=== PATIENT | male | born 1935 | race Caucasian/White ===

== ENCOUNTER 2017-11-30 14:24 | Observation (INO) | payer MEDICARE ==
[~2017-11-30] VITALS: Ht 175.3 cm; Wt 74.0 kg
[2017-11-30 14:26] VITALS: BP 126/58; PULSE 65; RESP 16; TEMP 97.6; O2SAT 100
[2017-11-30 15:47] LABS: AUTOMATED NEUTROPHIL # 2.8 TH/MM3 (1.8-7.7); BASOPHIL # 0.1 TH/MM3 (0-0.2); BASOPHIL % 1.1 % (0.0-2.0); EOSINOPHIL # 0.3 TH/MM3 (0-0.4); EOSINOPHIL % 5.3 % (0.0-4.0); HEMATOCRIT 31.3 % (39.0-51.0); HEMOGLOBIN 10.7 GM/DL (13.0-17.0); LYMPH % 28.3 % (9.0-44.0); LYMPHOCYTE # 1.4 TH/MM3 (1.0-4.8); MEAN CELL VOLUME 92.3 FL (80.0-100.0); MEAN CORPUSCULAR HEMOGLOBIN 31.6 PG (27.0-34.0); MEAN CORPUSCULAR HGB CONC 34.3 % (32.0-36.0); MEAN PLATELET VOLUME 9.7 FL (7.0-11.0); MONO % 7.5 % (0.0-8.0); MONOCYTE # 0.4 TH/MM3 (0-0.9); NEUT % 57.8 % (16.0-70.0); PLATELET COUNT 175 TH/MM3 (150-450); RED BLOOD COUNT 3.39 MIL/MM3 (4.50-5.90); RED CELL DISTRIBUTION WIDTH 14.1 % (11.6-17.2); WHITE BLOOD COUNT 4.9 TH/MM3 (4.0-11.0)
[2017-11-30 15:58] LABS: PROTHROMBIN TIME - PATIENT 10.4 SEC (9.8-11.6)
--- NOTE | 2017-11-30 16:10 | PD ---
HPI Chief Complaint: GI Complaint Time Seen by Provider: 15:53 Travel History International Travel<30 days: No Contact w/Intl Traveler<30days: No Traveled to known affect area: No History of Present Illness HPI 82-year-old male with a history of CVA on Plavix, and DM Type II presents to emergency department complaining of black and bright red bleeding per rectum. Patient states that he noticed this black stool last night and decided to come in today for evaluation. Patient states that for the last few days he has felt weak and fatigued. Patient states that he is down from [place] for couple months and was evaluated for this previously. Patient states that he had "internal bleeding" required an EGD and blood transfusions completed in February 2017. Apparently patient had polyps (unknown type) which were removed and did not have a subsequent follow-up. Patient denies fevers or chills. Denies chest pain or shortness of breath, abdominal pain, nausea, vomiting or diarrhea. Denies trauma. Patient does take Plavix daily for CVA that occurred 11 years ago. Denies cardiac or pulmonary medical problems. PFSH Past Medical History Hx Anticoagulant Therapy: Yes (plavix) Social History Tobacco Use: No Allergies-Medications (Allergen,Severity, Reaction): Coded Allergies: Penicillins (Verified Allergy, Severe, Rash, 12/02/17) Reported Meds & Prescriptions Reported Meds & Active Scripts Active Reported Niacin (Niacinamide) 500 Mg Tablet 500 Mg PO HS Aspirin Adult Low Strength (Aspirin) 81 Mg Tabdr 81 Mg PO DAILY C 500 (Ascorbic Acid) 500 Mg Tab 500 Mg PO HS Uloric (Febuxostat) 80 Mg Tab 40 Mg PO EVERY OTHER DAY Oxybutynin ER 24 HR (Oxybutynin Chloride) 10 Mg Tab 10 Mg PO HS Losartan (Losartan Potassium) 100 Mg Tab 100 Mg PO HS Atorvastatin (Atorvastatin Calcium) 40 Mg Tab 40 Mg PO HS Gabapentin 600 Mg Tab 600 Mg PO TID Zoloft (Sertraline HCl) 100 Mg Tab 100 Mg PO DAILY Omeprazole 40 Mg Cap 40 Mg PO DAILY Januvia (Sitagliptin Phosphate) 50 Mg Tab 50 Mg PO DAILY Fenofibrate 54 Mg Tab 54 Mg PO DAILY Plavix (Clopidogrel Bisulfate) 75 Mg Tab 75 Mg PO DAILY Tenormin (Atenolol) 25 Mg Tab 25 Mg PO DAILY Amlodipine (Amlodipine Besylate) 5 Mg Tab 5 Mg PO DAILY Review of Systems Except as stated in HPI: all other systems reviewed are Neg Physical Exam Narrative GENERAL: Well-developed well-nourished, slow speech SKIN: Focused skin assessment warm/dry. HEAD: Atraumatic. Normocephalic. EYES: Pupils equal and round. No scleral icterus. No injection or drainage. ENT: No nasal bleeding or discharge. Mucous membranes pink and moist. NECK: Trachea midline. No JVD. No lymphadenopathy CARDIOVASCULAR: Regular rate and rhythm. No murmur appreciated. RESPIRATORY: No accessory muscle use. Clear to auscultation. Breath sounds equal bilaterally. GASTROINTESTINAL: Abdomen soft, non-tender, nondistended. Hepatic and splenic margins not palpable. Rectal exam- good tone with dark red and black stool MUSCULOSKELETAL: No obvious deformities. No clubbing. No cyanosis. No edema. NEUROLOGICAL: Awake and alert. No obvious cranial nerve deficits. Motor grossly within normal limits. PSYCHIATRIC: Appropriate mood and affect; insight and judgment normal. Data Data Last Documented VS Vital Signs Date Time Temp Pulse Resp B/P (MAP) Pulse Ox O2 Delivery O2 Flow Rate FiO2 11/30/17 19:00 60 16 127/66 (86) 100 Room Air 11/30/17 14:26 97.6 Orders Orders Complete Blood Count With Diff (11/30/17 14:38) Comprehensive Metabolic Panel (11/30/17 14:38) Lipase (11/30/17 14:38) Prothrombin Time / Inr (Pt) (11/30/17 14:38) Act Partial Throm Time (Ptt) (11/30/17 14:38) Urinalysis - C+S If Indicated (11/30/17 14:38) Type And Screen (11/30/17 14:38) Electrocardiogram (11/30/17 ) Sodium Chlorid 0.9% 500 Ml Inj (Ns 500 M (11/30/17 16:30) Ct Brain W/O Iv Contrast(Rout) (11/30/17 ) Chest, Single Ap (11/30/17 ) Pantoprazole Inj (Protonix Inj) (11/30/17 17:45) Admit Order (Ed Use Only) (11/30/17 19:46) Labs Laboratory Tests Test 11/30/17 14:45 11/30/17 18:33 White Blood Count 4.9 TH/MM3 Red Blood Count 3.39 MIL/MM3 Hemoglobin 10.7 GM/DL Hematocrit 31.3 % Mean Corpuscular Volume 92.3 FL Mean Corpuscular Hemoglobin 31.6 PG Mean Corpuscular Hemoglobin Concent 34.3 % Red Cell Distribution Width 14.1 % Platelet Count 175 TH/MM3 Mean Platelet Volume 9.7 FL Neutrophils (%) (Auto) 57.8 % Lymphocytes (%) (Auto) 28.3 % Monocytes (%) (Auto) 7.5 % Eosinophils (%) (Auto) 5.3 % Basophils (%) (Auto) 1.1 % Neutrophils # (Auto) 2.8 TH/MM3 Lymphocytes # (Auto) 1.4 TH/MM3 Monocytes # (Auto) 0.4 TH/MM3 Eosinophils # (Auto) 0.3 TH/MM3 Basophils # (Auto) 0.1 TH/MM3 CBC Comment DIFF FINAL Differential Comment Prothrombin Time 10.4 SEC Prothromb Time International Ratio 1.0 RATIO Activated Partial Thromboplast Time 21.7 SEC Blood Urea Nitrogen 30 MG/DL Creatinine 1.66 MG/DL Random Glucose 111 MG/DL Total Protein 7.5 GM/DL Albumin 4.3 GM/DL Calcium Level 9.5 MG/DL Alkaline Phosphatase 117 U/L Aspartate Amino Transf (AST/SGOT) 77 U/L Alanine Aminotransferase (ALT/SGPT) 54 U/L Total Bilirubin 0.4 MG/DL Sodium Level 139 MEQ/L Potassium Level 4.2 MEQ/L Chloride Level 106 MEQ/L Carbon Dioxide Level 26.7 MEQ/L Anion Gap 6 MEQ/L Estimat Glomerular Filtration Rate 40 ML/MIN Lipase 314 U/L Urine Color LIGHT-YELLOW Urine Turbidity CLEAR Urine pH 5.5 Urine Specific [place] 1.010 Urine Protein NEG mg/dL Urine Glucose (UA) NEG mg/dL Urine Ketones NEG mg/dL Urine Occult Blood NEG Urine Nitrite NEG Urine Bilirubin NEG Urine Urobilinogen LESS THAN 2.0 MG/DL Urine Leukocyte Esterase NEG Urine WBC LESS THAN 1 /hpf Urine Bacteria RARE /hpf Microscopic Urinalysis Comment CULT NOT INDICATED MDM Medical Decision Making Medical Screen Exam Complete: Yes Emergency Medical Condition: Yes Differential Diagnosis symptomatic anemia, GI bleed, melena, hematochezia Narrative Course 82-year-old male with a history of CVA on Plavix, and DM Type II presents to emergency department complaining of black and bright red bleeding per rectum. Patient states that he noticed this black stool last night and decided to come in today for evaluation. Patient states that for the last few days he has felt weak and fatigued. Patient states that he is down from [place] for couple months and was evaluated for this previously. Patient states that he had "internal bleeding" required an EGD and blood transfusions completed in February 2017. Apparently patient had polyps (unknown type) which were removed and did not have a subsequent follow-up. Patient denies fevers or chills. Denies chest pain or shortness of breath, abdominal pain, nausea, vomiting or diarrhea. Denies trauma. Patient does take Plavix daily for CVA that occurred 11 years ago. Denies cardiac or pulmonary medical problems. Last oral intake 12 :30. Vital signs stable. Physical exam findings without focal neuro deficits. Rectal exam demonstrates dark stool with scant bright red blood. Good rectal tone. EKG demonstrates sinus rhythm without ST depression or elevation. Head CT and CXR ordered to evaluate for weakness. No acute process noted. Protonix administered. Patient brought in from February 2017. These labs demonstrated creatinine 1.46, BUN 22. RBC 3.91, hemoglobin 10.2, hematocrit 33.2. states that this was his last blood work and does not have any other numbers to compare. H&H 10.3/31.3 currently. Although not too impressive and no obvious change from 2017 labs, pt is symptomatic and on Plavix. Pt will be admitted to Obs. Recommend serial CBCs Q6hrs. Consider GI Consult. [facility] Point of Care Internal Pos. & Neg. Controls: Passed Fecal Specimen Occult Blood: Positive Diagnosis Primary Impression: Melena Additional Impression: Symptomatic anemia Admitting Information Admitting Physician Requests: Observation Condition: Stable Catrachita Perdomo Nov 30, 2017 16:10
[2017-11-30 16:16] LABS: ALBUMIN 4.3 GM/DL (3.4-5.0); AST (GOT) 77 U/L (15-37); BICARBONATE 26.7 MEQ/L (21.0-32.0); BLOOD UREA NITROGEN 30 MG/DL (7-18); CALCIUM 9.5 MG/DL (8.5-10.1); CHLORIDE 106 MEQ/L (98-107); CREATININE 1.66 MG/DL (0.60-1.30); GLOMERULAR FILTRATION RATE 40 ML/MIN (>89); GLUCOSE,RANDOM 111 MG/DL (74-106); LIPASE 314 U/L (73-393); SODIUM (NA) 139 MEQ/L (136-145)
[2017-11-30 16:20] LABS: ALKALINE PHOSPHATASE 117 U/L (45-117); ALT (GPT) 54 U/L (12-78); TOTAL BILIRUBIN ADULT 0.4 MG/DL (0.2-1.0); TOTAL PROTEIN 7.5 GM/DL (6.4-8.2)
[2017-11-30] MEDS ORDERED: SODIUM CHLORID 0.9% 500 ML INJ 500 ML IV ONE (16:30)
--- NOTE | 2017-11-30 17:08 | RADRPT ---
EXAM DATE/TIME: 11/30/2017 16:46 [facility] COMPARISON: No previous studies available for comparison. INDICATIONS : Syncope, weakness. MEDICAL HISTORY : None. SURGICAL HISTORY : None. ENCOUNTER: Initial ACUITY: 1 day PAIN SCORE: 0/10 LOCATION: Bilateral chest FINDINGS: A single view of the chest demonstrates the lungs to be symmetrically aerated without evidence of mas s, infiltrate or effusion. The cardiomediastinal contours are unremarkable. Osseous structures are intact. CONCLUSION: Normal examination for a patient of this age. Uriel Cote MD on November 30, 2017 at 17:05 Board Certified Radiologist. This report was verified electronically.
[2017-11-30] MEDS ORDERED: LOSA100T PO (17:29)
[2017-11-30] MEDS ORDERED: ATOR40TA16 PO (17:29)
[2017-11-30] MEDS ORDERED: ASPI81TA16 PO (17:29)
[2017-11-30] MEDS ORDERED: ZOLO100T PO (17:29)
[2017-11-30] MEDS ORDERED: OXYB10TA PO (17:29)
[2017-11-30] MEDS ORDERED: GABA600T PO (17:29)
[2017-11-30] MEDS ORDERED: ULOR80TA2 PO (17:29)
[2017-11-30] MEDS ORDERED: SITA50 PO (17:29)
[2017-11-30] MEDS ORDERED: FENO54TA PO (17:29)
[2017-11-30] MEDS ORDERED: OMEP40CA2 PO (17:29)
[2017-11-30] MEDS ORDERED: ATEN1TAB73 PO (17:29)
[2017-11-30] MEDS ORDERED: NIAC500T67 PO (17:29)
[2017-11-30] MEDS ORDERED: AMLO5TAB2 PO (17:29)
[2017-11-30] MEDS ORDERED: C 50TAB PO (17:29)
[2017-11-30] MEDS ORDERED: PLAV75TA29 PO (17:29)
[2017-11-30] MEDS ORDERED: PANTOPRAZOLE SODIUM 40 MG VIAL IV PUSH ONE (17:45)
--- NOTE | 2017-11-30 17:50 | RADRPT ---
EXAM DATE/TIME: 11/30/2017 17:19 [facility] COMPARISON: No previous studies available for comparison. INDICATIONS : General weakness RADIATION DOSE: 56.35 CTDIvol (mGy) MEDICAL HISTORY : Hypertension. Carcinoma, testicular. SURGICAL HISTORY : Orthopedic ENCOUNTER: Initial ACUITY: 1 day PAIN SCALE: 0/10 LOCATION: cranial TECHNIQUE: Multiple contiguous axial images were obtained of the head. Using automated exposure control and adj ustment of the mA and/or kV according to patient size, radiation dose was kept as low as reasonably a chievable to obtain optimal diagnostic quality images. DICOM format image data is available electro nically for review and comparison. FINDINGS: CEREBRUM: The ventricles are prominent as are sulci indicating mild atrophy. No evidence of midline shift, mas s lesion, hemorrhage or acute infarction. No extra-axial fluid collections are seen. POSTERIOR FOSSA: The cerebellum and brainstem are intact. The 4th ventricle is midline. The cerebellopontine angle i s unremarkable. EXTRACRANIAL: The visualized portion of the orbits is intact. Calcifications bilateral vertebral arteries at the fo ramen and bilateral carotid arteries in the siphons SKULL: The calvaria is intact. No evidence of skull fracture. CONCLUSION: No acute intracranial process. Mild atrophy. Vascular calcifications as noted. Uriel Cote MD on November 30, 2017 at 17:46 Board Certified Radiologist. This report was verified electronically.
[2017-11-30 19:00] VITALS: BP 127/66; PULSE 60; RESP 16; O2SAT 100
[2017-11-30 19:03] LABS: BACTERIA, URINE RARE /hpf; BILIRUBIN, URINE NEG (NEG); BLOOD, URINE NEG (NEG); GLUCOSE,URINE NEG (NEG); KETONE, URINE NEG (NEG); NITRITE,URINE NEG (NEG); PH, URINE 5.5 (5.0-8.5); URINE COLOR LIGHT-YELLOW (YELLW/STRAW); URINE LEUKOCYTE ESTERASE NEG (NEG)
[2017-11-30] MEDS ORDERED: NALOXONE HCL 0.4 MG/ML AMP IV PUSH PRN (20:15)
[2017-11-30] MEDS ORDERED: SODIUM CHLORIDE 0.9% FLUSH 10 ML FLUSH IV FLUSH PRN (20:15)
[2017-11-30] MEDS: SODIUM CHLORIDE 0.9% FLUSH 10 ML FLUSH IV FLUSH SCH (20:53)
[2017-11-30 21:05] LABS: HEMATOCRIT 28.9 % (39.0-51.0); HEMOGLOBIN 9.5 GM/DL (13.0-17.0)
[2017-11-30 23:00] VITALS: BP 118/60; PULSE 62; RESP 16; O2SAT 100
[2017-12-01] VITALS (8 sets, daily range): BP systolic 93–130; BP diastolic 48–66; PULSE 60–75; RESP 16–20; TEMP 97.7–98.4; O2SAT 96–100
--- NOTE | 2017-12-01 02:56 | HHI.HP ---
HPI Service [facility] Primary Care Physician Non-Staff Admission Diagnosis Symptomatic anemia, GI Bleed on plavix Diagnoses: Travel History International Travel<30 Days: No Contact w/Intl Traveler <30 Da: No Traveled to Known Affected Are: No History of Present Illness History from patient, ER physician communication, and review of medical records. Patient reported that about a couple of nights ago, he has had black color stool. He reports he remember having similar symptoms about 6 months ago at which time he had a polyp removed. He stated at that time his hemoglobin was 5.0. He was severely symptomatic at that point and had to be rushed to go to the hospital. His baseline hemoglobin is 11-12. This time, he did not want to wait that long and therefore he came to the hospital. He reports that he had an endoscopy and the polyp was was removed through the endoscopy. He is not sure exactly what part of his upper GI that the polyp was located. Patient denies any prior history of CAD. He reports his blood cholesterol was only once or twice and happened about a few nights ago. It has spontaneously resolved. He however has not eaten much at home since the then. He denies any chest pain/shortness of breath/dizziness/syncopal episodes. He does however report of generalized weakness He came here from [place] for vacation. Review of Systems Except as stated in HPI: all other systems reviewed are Neg Past Family Social History Past Medical History htn dm cva- 12 yrs ago - was parayzed on right side cancer testicular 1987- right side- was treated with chemo full blown dose, for 5 days Past Surgical History exploratory surgery with removal of right ribs removed, lymph nodes removed for right testicular cancer right orchiectomy back surgery x 2 Allergies: Coded Allergies: No Known Allergies (Verified Allergy, Unknown, 11/30/17) Family History none that he knows of Social History no smoking/ etoh abuse/ drug abuse Physical Exam Vital Signs Vital Signs Date Time Temp Pulse Resp B/P (MAP) Pulse Ox O2 Delivery O2 Flow Rate FiO2 11/30/17 14:26 97.6 65 16 126/58 (80) 100 Physical Exam GENERAL: This is a well-nourished, well-developed patient, in no apparent distress. SKIN: No rashes, ecchymoses or lesions. Cool and dry. HEAD: Atraumatic. Normocephalic. No temporal or scalp tenderness. EYES: No scleral icterus. No injection or drainage. ENT: Nose without bleeding, purulent drainage or septal hematoma. Airway patent. NECK: Trachea midline. No JVD . Supple, nontender, no meningeal signs. CARDIOVASCULAR: Regular rate and rhythm without murmurs, gallops, or rubs. RESPIRATORY: Clear to auscultation. Breath sounds equal bilaterally. No wheezes , rales, or rhonchi. GASTROINTESTINAL: Abdomen soft, non-tender, nondistended. No guarding. MUSCULOSKELETAL: Extremities without clubbing, cyanosis, or edema. . No calf tenderness. NEUROLOGICAL: Awake and alert.Motor and sensory grossly within normal limits. Normal speech. Laboratory Laboratory Tests Test 11/30/17 14:45 11/30/17 18:33 11/30/17 20:40 White Blood Count 4.9 Red Blood Count 3.39 Hemoglobin 10.7 9.5 Hematocrit 31.3 28.9 Mean Corpuscular Volume 92.3 Mean Corpuscular Hemoglobin 31.6 Mean Corpuscular Hemoglobin Concent 34.3 Red Cell Distribution Width 14.1 Platelet Count 175 Mean Platelet Volume 9.7 Neutrophils (%) (Auto) 57.8 Lymphocytes (%) (Auto) 28.3 Monocytes (%) (Auto) 7.5 Eosinophils (%) (Auto) 5.3 Basophils (%) (Auto) 1.1 Neutrophils # (Auto) 2.8 Lymphocytes # (Auto) 1.4 Monocytes # (Auto) 0.4 Eosinophils # (Auto) 0.3 Basophils # (Auto) 0.1 CBC Comment DIFF FINAL Differential Comment Prothrombin Time 10.4 Prothromb Time International Ratio 1.0 Activated Partial Thromboplast Time 21.7 Blood Urea Nitrogen 30 Creatinine 1.66 Random Glucose 111 Total Protein 7.5 Albumin 4.3 Calcium Level 9.5 Alkaline Phosphatase 117 Aspartate Amino Transf (AST/SGOT) 77 Alanine Aminotransferase (ALT/SGPT) 54 Total Bilirubin 0.4 Sodium Level 139 Potassium Level 4.2 Chloride Level 106 Carbon Dioxide Level 26.7 Anion Gap 6 Estimat Glomerular Filtration Rate 40 Lipase 314 Urine Color LIGHT-YELLOW Urine Turbidity CLEAR Urine pH 5.5 Urine Specific [place] 1.010 Urine Protein NEG Urine Glucose (UA) NEG Urine Ketones NEG Urine Occult Blood NEG Urine Nitrite NEG Urine Bilirubin NEG Urine Urobilinogen LESS THAN 2.0 Urine Leukocyte Esterase NEG Urine WBC LESS THAN 1 Urine Bacteria RARE Microscopic Urinalysis Comment CULT NOT INDICATED Result Diagram: 11/30/17203911/30/17 1445 Imaging Last [address] 11/30/17 0000 Signed Impressions: Service Date/Time: Thursday, November 30, 2017 17:19 - CONCLUSION: No acute intracranial process. Mild atrophy. Vascular calcifications as noted. Uriel Cote MD Chest X-Ray 11/30/17 0000 Signed Impressions: Service Date/Time: Thursday, November 30, 2017 16:46 - CONCLUSION: Normal examination for a patient of this age. MD Marylin Gonzalez VTE Risk Assessment Geoffreyrinlorena VTE Risk Assessment: Mod/High Risk (score >= 2) Caprini Risk Assessment Model Point Value = 1 Point Value = 2 Point Value = 3 Point Value = 5 Age 41-60 Minor surgery BMI > 25 kg/m2 Swollen legs Varicose veins or History of unexplained or recurrent spontaneous Oral contraceptives or hormone replacement Sepsis (< 1 month) Serious lung disease, including pneumonia (< 1 month) Abnormal pulmonary function Acute myocardial infarction Congestive heart failure (< 1 month) History of inflammatory bowel disease Medical patient at bed rest Age 61-74 Arthroscopic surgery Major open surgery (> 45 min) Laparoscopic surgery (> 45 min) Malignancy Confined to bed (> 72 hours) Immobilizing plaster cast Central venous access Age >= 75 History of VTE Family history of VTE Factor V Leiden Prothrombin [id number] Lupus anticoagulant Anticardiolipin antibodies Elevated serum homocysteine Heparin-induced thrombocytopenia Other congenital or acquired thrombophilia Stroke (< 1 month) Elective arthroplasty Hip, pelvis, or leg fracture Acute spinal cord injury (< 1 month) Prophylaxis Regimen Total Risk Factor Score Risk Level Prophylaxis Regimen 0-1 Low Early ambulation 2 Moderate Order ONE of the following: *Sequential Compression Device (SCD) *Heparin 5000 units SQ BID 3-4 Higher Order ONE of the following medications: *Heparin 5000 units SQ TID *Enoxaparin/Lovenox 40 mg SQ daily (WT < 150 kg, CrCl > 30 mL/min) *Enoxaparin/Lovenox 30 mg SQ daily (WT < 150 kg, CrCl > 10-29 mL/min) *Enoxaparin/Lovenox 30 mg SQ BID (WT < 150 kg, CrCl > 30 mL/min) AND/OR *Sequential Compression Device (SCD) 5 or more Highest Order ONE of the following medications: *Heparin 5000 units SQ TID (Preferred with Epidurals) *Enoxaparin/Lovenox 40 mg SQ daily (WT < 150 kg, CrCl > 30 mL/min) *Enoxaparin/Lovenox 30 mg SQ daily (WT < 150 kg, CrCl > 10-29 mL/min) *Enoxaparin/Lovenox 30 mg SQ BID (WT < 150 kg, CrCl > 30 mL/min) AND *Sequential Compression Device (SCD) Assessment and Plan Assessment and Plan Impression: Upper GI bleed History of prior upper GI bleed with what sounds like cauterization and polypectomy Acute renal failure secondary to dehydration On chronic Plavix therapy htn dm cva- 12 yrs ago - was parayzed on right side cancer testicular 1986- right side- was treated with chemo full blown dose, for 5 days Plan: Serial hemoglobin and hematocrit. PPI IV NPO fingersticks monitoring D5 NS at 84cc/hr Type and screen. 2 units of PRBC in the blood bank. If hemoglobin continues to drop and if less than 8 or if patient is symptomatic , we'll transfuse. Otherwise await GI input. Hold aspirin. Hold Plavix. Otherwise sitting most of his meds DVT prophylaxis with SCD. Discussed Condition With charge Joana Burnette MD Dec 01, 2017 02:56
[2017-12-01] MEDS ORDERED: diphenhydrAMINE HCL 50 MG/ML VIAL IV PUSH ONE (03:00)
[2017-12-01] MEDS ORDERED: GLUCAGON 1 MG/ML VIAL OTHER PRN (03:15)
[2017-12-01] MEDS ORDERED: DEXTROSE 50% IN WATER 50 ML VIAL(D50) IV PUSH PRN (03:15)
[2017-12-01] MEDS: DEXT 5%-NACL 0.9% 1000 ML INJ 1,000 ML IV SCH ×2 (03:30→18:18)
[2017-12-01] MEDS: NIACIN 500 MG EXTENDED RELEASE TAB PO SCH ×2 (03:56→21:23)
[2017-12-01] MEDS: PANTOPRAZOLE SODIUM 40 MG VIAL IV PUSH SCH ×2 (06:17→18:19)
[2017-12-01 06:41] LABS: AUTOMATED NEUTROPHIL # 1.7 TH/MM3 (1.8-7.7); EOSINOPHIL # 0.2 TH/MM3 (0-0.4); EOSINOPHIL % 5.4 % (0.0-4.0); HEMATOCRIT 25.4 % (39.0-51.0); HEMOGLOBIN 8.7 GM/DL (13.0-17.0); LYMPH % 31.1 % (9.0-44.0); MEAN CELL VOLUME 92.1 FL (80.0-100.0); MEAN CORPUSCULAR HEMOGLOBIN 31.4 PG (27.0-34.0); MEAN CORPUSCULAR HGB CONC 34.1 % (32.0-36.0); MEAN PLATELET VOLUME 9.4 FL (7.0-11.0); MONO % 7.7 % (0.0-8.0); MONOCYTE # 0.2 TH/MM3 (0-0.9); NEUT % 54.8 % (16.0-70.0); PLATELET COUNT 124 TH/MM3 (150-450); RED BLOOD COUNT 2.76 MIL/MM3 (4.50-5.90); WHITE BLOOD COUNT 3.1 TH/MM3 (4.0-11.0)
[2017-12-01 07:02] LABS: BICARBONATE 23.6 MEQ/L (21.0-32.0); CALCIUM 8.5 MG/DL (8.5-10.1); CREATININE 1.36 MG/DL (0.60-1.30)
[2017-12-01] MEDS: SODIUM CHLORIDE 0.9% FLUSH 10 ML FLUSH IV FLUSH SCH ×2 (08:07→21:00)
[2017-12-01] MEDS: OXYBUTYNIN CHLORIDE 5 MG TAB PO SCH ×2 (08:07→21:23)
[2017-12-01] MEDS: ATENOLOL 25 MG TAB PO SCH (08:07)
[2017-12-01] MEDS: GABAPENTIN 300 MG CAP PO SCH ×3 (08:07→18:19)
[2017-12-01] MEDS: amLODIPine BESYLATE 5 MG TAB PO SCH (08:07)
[2017-12-01] MEDS: SERTRALINE HCL 100 MG TAB PO SCH (08:07)
[2017-12-01] MEDS ORDERED: FEBUXOSTAT 40 MG PO SCH (09:00)
[2017-12-01] MEDS ORDERED: FENOFIBRATE 48 MG TAB PO SCH (09:00)
--- NOTE | 2017-12-01 09:51 | HHI.PR ---
Subjective Remarks Follow-up on patient with upper GI bleed. Patient seen and examined. Patient states he feels well. He denies any complaints at present. He denies any dizziness, lightheadedness, chest pain or shortness of breath. Denies any increased fatigue. He has not had a bowel movement since admission. He denies any hematuria or dysuria. Patient states that he had a colonoscopy or 4 years ago and was told he would probably not need another one in his lifetime. Also underwent an endoscopy in February with polypectomy due to upper GI bleed resulting in symptomatic anemia requiring transfusion. Patient denies any nausea, vomiting or abdominal pain. He is hungry and wants to eat. He takes Plavix and aspirin daily following a stroke he had 12 years ago, his last dose was on Thursday. Patient also reports daily alcohol consumption of one gin and tonic around 5:00 at night. He denies taking NSAIDs on a regular basis. Objective Vitals Vital Signs Date Time Temp Pulse Resp B/P (MAP) Pulse Ox O2 Delivery O2 Flow Rate FiO2 12/01/17 09:36 75 20 130/66 (87) 97 12/01/17 09:36 75 20 130/66 (87) 97 Room Air 12/01/17 07:00 16 12/01/17 07:00 97.8 60 16 120/59 (79) 99 Room Air 12/01/17 03:00 63 16 114/59 (77) 100 Room Air 11/30/17 23:00 62 16 118/60 (79) 100 Room Air 11/30/17 19:00 60 16 127/66 (86) 100 Room Air 11/30/17 14:26 97.6 65 16 126/58 (80) 100 I/O 11/30/17 11/30/17 11/30/17 12/01/17 12/01/17 12/01/17 07:00 15:00 23:00 07:00 15:00 23:00 Intake Total 500 ml Output Total 600 ml Balance 500 ml -600 ml Intake IV Total 500 ml Output Urine Total 600 ml # Voids 1 # Bowel Movements 0 Result Diagram: 12/01/17 0547 12/01/17 0547 Imaging Last Impressions Head CT 11/30/17 0000 Signed Impressions: Service Date/Time: Thursday, November 30, 2017 17:19 - CONCLUSION: No acute intracranial process. Mild atrophy. Vascular calcifications as noted. Uriel Cote MD Chest X-Ray 11/30/17 0000 Signed Impressions: Service Date/Time: Thursday, November 30, 2017 16:46 - CONCLUSION: Normal examination for a patient of this age. rUiel Cote MD Objective Remarks GENERAL: This is a well-nourished, well-developed elderly male patient , in no apparent distress. Awake and alert. SKIN: Cool and dry. HEAD: Atraumatic. Normocephalic. EYES: EOMI. No scleral icterus. No injection or drainage. ENT: Nose without bleeding, purulent drainage or septal hematoma. Airway patent. NECK: Trachea midline. CARDIOVASCULAR: Regular rate and rhythm without murmurs, gallops, or rubs. RESPIRATORY: Clear to auscultation. Breath sounds equal bilaterally. No wheezes , rales, or rhonchi. GASTROINTESTINAL: Abdomen soft, non-tender, nondistended. No guarding. MUSCULOSKELETAL: Extremities without clubbing, cyanosis, or edema. No calf tenderness. NEUROLOGICAL: Awake and alert. Motor and sensory grossly within normal limits. No focal neurologic findings appreciated. Normal speech. Medications and IVs Current Medications Medications (Trade) Dose Ordered Sig/Brody Route Start Time Stop Time Status Last Admin (NS Flush) 2 ml UNSCH PRN IV FLUSH 11/30/17 20:15 (NS Flush) 2 ml BID IV FLUSH 11/30/17 21:00 11/30/17 20:53 (Narcan Inj) 0.4 mg UNSCH PRN IV PUSH 11/30/17 20:15 (Protonix Inj) 40 mg Q12H IV PUSH 12/01/17 06:00 12/01/17 06:17 (Norvasc) 5 mg DAILY PO 12/01/17 09:00 12/01/17 08:07 (Tenormin) 25 mg DAILY PO 12/01/17 09:00 12/01/17 08:07 (Lipitor) 40 mg HS PO 12/01/17 21:00 (Neurontin) 600 mg TID PO 12/01/17 09:00 12/01/17 08:07 (Cozaar) 100 mg HS PO 12/01/17 21:00 (Zoloft) 100 mg DAILY PO 12/01/17 09:00 12/01/17 08:07 Patient Own Medication PT OWN MED: NON-FORMULARY D... EVERY OTHER DAY PO 12/01/17 09:00 Future Hold (Tricor) 48 mg DAILY PO 12/01/17 09:00 12/01/17 08:06 (Slo-Niacin) 500 mg HS PO 12/01/17 03:30 12/01/17 03:56 (Ditropan) 5 mg BID PO 12/01/17 09:00 12/01/17 08:07 Dextrose/Sodium Chloride 1,000 ml @ 84 mls/hr [id number] IV 12/01/17 03:15 12/01/17 03:30 (D50w (Vial) Inj) 50 ml UNSCH PRN IV PUSH 12/01/17 03:15 (Glucagon Inj) 1 mg UNSCH PRN OTHER 12/01/17 03:15 (NovoLOG SUPPLEMENTAL SCALE) 1 ACHS SLIDING SCALE SQ 12/01/17 12:00 UNV A/P Assessment and Plan UGI bleed - History of prior upper GI bleed causing symptomatic anemia requiring transfusion status post EGD and polypectomy in February of last year - GI following, appreciate assistance. Plan for EGD later today. - IV PPI - keep patient NPO - Continue to hold Plavix and aspirin for now Anemia - Suspect secondary to above - Iron studies pending - Patient is asymptomatic at present - Hemoglobin dropped from 10.7-8.7 since admission. Repeat H&H at noon. Continue to monitor H&H closely. - Plan to transfuse if hemoglobin drops below 8 or if patient is symptomatic. QUENTIN on suspected CKD - Creatinine 1.66/GFR 40 at admission, no comparison labs available. UA unremarkable. - Improving with IV hydration - Avoid nephrotoxic agents - Continue to monitor kidney function Hypertension - Patient resumed on home medications - Blood pressure controlled - Continue to monitor BP and adjust treatment accordingly Hyperlipidemia Transaminitis - Hold statin and fenofibrate for now - Patient will need a follow-up with PCP in regards to resuming statin treatment Diabetic - Accu-Cheks, insulin sliding scale - Patient takes Januvia at home which is held secondary to nothing by mouth status History of CVA - Patient on chronic Plavix and aspirin therapy, held for now secondary to active GI bleed. DVT prophylaxis - bilateral CUCO/SCDs - Chemoprophylaxis contraindicated secondary to active GI bleed. Discharge Planning Pending stabilization of hemoglobin and GI clearance. Shruthi Sahu Dec 01, 2017 09:50
--- NOTE | 2017-12-01 10:04 | PD.CONS ---
HPI History of Present Illness This is a 82 year old, admitted yesterday for a chief complaint of melena and symptomatic anemia. He had a history of a similar episode 6 months ago where he had weakness, underwent an EGD, found to have a polyp that was removed. He's a daily alcohol user (1-2 glasses of Gen and Tonic). Hemoglobin level today was 8.7 mmHg. Denies any nausea, vomiting, constipation, dizziness, dysphagia, abdominal pain, palpitations. The patient's currently NPO, currently receiving IV PPIs, no diarrhea, stools today, no rectal bleeding noted. Labs include: ALT: 44, AST: 77, Bilirubin:0.4, ALP: 117. 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- was treated with chemo full blown dose, for 5 days Polyps Past Surgical History exploratory surgery with removal of right ribs removed, lymph nodes removed for right testicular cancer right orchiectomy back surgery x 2 (Alba Montoya) Coded Allergies: No Known Allergies (Verified Allergy, Unknown, 11/30/17) Medications Administered Medications Medications (Trade) Dose Ordered Sig/Brody Route PRN Reason Start Time Stop Time Status Last Admin Dose Admin Sodium Chloride (NS Flush) 2 ml BID IV FLUSH 11/30/17 21:00 11/30/17 20:53 Pantoprazole Sodium (Protonix Inj) 40 mg Q12H IV PUSH 12/01/17 06:00 12/01/17 06:17 Amlodipine Besylate (Norvasc) 5 mg DAILY PO 12/01/17 09:00 12/01/17 08:07 Atenolol (Tenormin) 25 mg DAILY PO 12/01/17 09:00 12/01/17 08:07 Gabapentin (Neurontin) 600 mg TID PO 12/01/17 09:00 12/01/17 08:07 Sertraline HCl (Zoloft) 100 mg DAILY PO 12/01/17 09:00 12/01/17 08:07 Fenofibrate (Tricor) 48 mg DAILY PO 12/01/17 09:00 12/01/17 08:06 Niacin (Slo-Niacin) 500 mg HS PO 12/01/17 03:30 12/01/17 03:56 Oxybutynin Chloride (Ditropan) 5 mg BID PO 12/01/17 09:00 12/01/17 08:07 Dextrose/Sodium Chloride 1,000 ml @ 84 mls/hr [id number] IV 12/01/17 03:15 12/01/17 03:30 Family History none that he knows of Social History no smoking/ drug abuse Daily etoh Gin (Alba Montoya) Review of Systems Constitutional: COMPLAINS OF: Fatigue (Alba Montoya) GI Exam Vitals I&O Vital Signs Date Time Temp Pulse Resp B/P (MAP) Pulse Ox O2 Delivery O2 Flow Rate FiO2 12/01/17 09:36 75 20 130/66 (87) 97 12/01/17 09:36 75 20 130/66 (87) 97 Room Air 12/01/17 07:00 16 12/01/17 07:00 97.8 60 16 120/59 (79) 99 Room Air 12/01/17 03:00 63 16 114/59 (77) 100 Room Air 11/30/17 23:00 62 16 118/60 (79) 100 Room Air 11/30/17 19:00 60 16 127/66 (86) 100 Room Air 11/30/17 14:26 97.6 65 16 126/58 (80) 100 I/O 11/30/17 11/30/17 11/30/17 12/01/17 12/01/17 12/01/17 07:00 15:00 23:00 07:00 15:00 23:00 Intake Total 500 ml Output Total 600 ml Balance 500 ml -600 ml Intake IV Total 500 ml Output Urine Total 600 ml # Voids 1 # Bowel Movements 0 Imaging Last Impressions Head CT 11/30/17 0000 Signed Impressions: Service Date/Time: Thursday, November 30, 2017 17:19 - CONCLUSION: No acute intracranial process. Mild atrophy. Vascular calcifications as noted. Uriel Cote MD Chest X-Ray 11/30/17 0000 Signed Impressions: Service Date/Time: Thursday, November 30, 2017 16:46 - CONCLUSION: Normal examination for a patient of this age. Uriel Cote MD Laboratory Test 11/30/17 14:45 11/30/17 18:33 11/30/17 20:40 12/01/17 05:47 White Blood Count 4.9 TH/MM3 3.1 TH/MM3 Red Blood Count 3.39 MIL/MM3 2.76 MIL/MM3 Hemoglobin 10.7 GM/DL 9.5 GM/DL 8.7 GM/DL Hematocrit 31.3 % 28.9 % 25.4 % Mean Corpuscular Volume 92.3 FL 92.1 FL Mean Corpuscular Hemoglobin 31.6 PG 31.4 PG Mean Corpuscular Hemoglobin Concent 34.3 % 34.1 % Red Cell Distribution Width 14.1 % 14.0 % Platelet Count 175 TH/MM3 124 TH/MM3 Mean Platelet Volume 9.7 FL 9.4 FL Neutrophils (%) (Auto) 57.8 % 54.8 % Lymphocytes (%) (Auto) 28.3 % 31.1 % Monocytes (%) (Auto) 7.5 % 7.7 % Eosinophils (%) (Auto) 5.3 % 5.4 % Basophils (%) (Auto) 1.1 % 1.0 % Neutrophils # (Auto) 2.8 TH/MM3 1.7 TH/MM3 Lymphocytes # (Auto) 1.4 TH/MM3 1.0 TH/MM3 Monocytes # (Auto) 0.4 TH/MM3 0.2 TH/MM3 Eosinophils # (Auto) 0.3 TH/MM3 0.2 TH/MM3 Basophils # (Auto) 0.1 TH/MM3 0.0 TH/MM3 CBC Comment DIFF FINAL DIFF FINAL Differential Comment Prothrombin Time 10.4 SEC Prothromb Time International Ratio 1.0 RATIO Activated Partial Thromboplast Time 21.7 SEC Blood Urea Nitrogen 30 MG/DL 27 MG/DL Creatinine 1.66 MG/DL 1.36 MG/DL Random Glucose 111 MG/DL 116 MG/DL Total Protein 7.5 GM/DL Albumin 4.3 GM/DL Calcium Level 9.5 MG/DL 8.5 MG/DL Alkaline Phosphatase 117 U/L Aspartate Amino Transf (AST/SGOT) 77 U/L Alanine Aminotransferase (ALT/SGPT) 54 U/L Total Bilirubin 0.4 MG/DL Sodium Level 139 MEQ/L 140 MEQ/L Potassium Level 4.2 MEQ/L 4.1 MEQ/L Chloride Level 106 MEQ/L 109 MEQ/L Carbon Dioxide Level 26.7 MEQ/L 23.6 MEQ/L Anion Gap 6 MEQ/L 7 MEQ/L Estimat Glomerular Filtration Rate 40 ML/MIN 50 ML/MIN Lipase 314 U/L Urine Color LIGHT-YELLOW Urine Turbidity CLEAR Urine pH 5.5 Urine Specific [place] 1.010 Urine Protein NEG mg/dL Urine Glucose (UA) NEG mg/dL Urine Ketones NEG mg/dL Urine Occult Blood NEG Urine Nitrite NEG Urine Bilirubin NEG Urine Urobilinogen LESS THAN 2.0 MG/DL Urine Leukocyte Esterase NEG Urine WBC LESS THAN 1 /hpf Urine Bacteria RARE /hpf Microscopic Urinalysis Comment CULT NOT INDICATED Physical Examination HEENT: Pupils round and reactive to light; normocephalic; atraumatic; no jaundice. Throat is clear. NECK: Neck is supple, no JVD, no lymphadenopathy. CHEST: Chest is clear to auscultation and percussion. CARDIAC: Regular rate and rhythm with no murmur gallop or rubs. ABDOMEN: Soft, nondistended, nontender; no hepatosplenomegaly; bowel sounds are present in all four quadrants. EXTREMITIES: No clubbing, cyanosis, or edema. SKIN: Normal; no rash; no jaundice. 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 (Alba Montoya) Assessment and Plan Assessment: (1) Elevated liver enzymes ICD Codes: R74.8 - Abnormal levels of other serum enzymes (2) Melena ICD Codes: K92.1 - Melena Status: Acute (3) Symptomatic anemia ICD Codes: D64.9 - Anemia, unspecified Status: Acute Plan Symptomatic anemia and melena: Possibly due to gastritis, ulcers, ETOH abuse, polyps. Discussed with Dr. Armendariz, case, EGD scheduled for today. GI lab notified. Patient's currently NPO. General information given to patient and plan of care. Patient's on Plavix, but has been held for two days. Labs: Orderd iron, TIBC, ferritin, CMP for tomorrow, CBC for tomorrow. Monitor for any acute bleeding and call GI IV PPI Old records ordered from [place]. Supportive care, further plan of care based on patient's symptoms. This patient was seen by myself and Dr. Armendariz, note was written on his behalf. (Alba Montoya) Physician Comments Patient seen and examined Agree with above Continue with current supportive care Monitor labs and transfuse if needed EGD today (John Armendariz MD) Alba Montoya Dec 01, 2017 10:04 John Armendariz MD Dec 01, 2017 15:51
[2017-12-01] MEDS: INSULIN ASPART SUPPLEMENTAL SCALE SQ SCH ×3 (11:59→20:00)
[2017-12-01] MEDS ORDERED: LIDOCAINE HCL 1% PF 5 ML SYRINGE OTHER ONE (12:00)
[2017-12-01] MEDS ORDERED: PROPOFOL 200 MG/20 ML AMP IV ONE (12:00)
[2017-12-01 13:51] LABS: IRON (FE) 132 MCG/DL (65-175)
--- NOTE | 2017-12-01 14:23 | EKG ---
Date Performed: 11/30/2017 Time Performed: 14:52:45 PTAGE: 82 years EKG: Sinus rhythm INCOMPLETE RIGHT BUNDLE BRANCH BLOCK BORDERLINE ECG NO PREVIOUS TRACING DOCTOR: Brook Waters Interpretating Date/Time 12/01/2017 14:22:39
[2017-12-01 15:33] LABS: FERRITIN 33 NG/ML (26-388)
--- NOTE | 2017-12-01 15:55 | PD.PROCEDR ---
GI Procedure PROCEDURE PERFORMED EGD with biopsy and snare polypectomy INDICATION FOR PROCEDURE Melena, anemia PROCEDURE: The procedure, risks and benefits were discussed with Mr. Santiago and informed consent was obtained. Anesthesia sedated him with Diprivan. He was placed in the left lateral decubitus position. EGD: The Pentax videoscope was introduced through the oropharynx and advanced to the second portion of the duodenum under direct visualization. Retroflexion was performed in the stomach. FINDINGS: The esophagus this appeared to be unremarkable with normal limits except for a mild Schatzki ring at the GE junction Stomach there was a small hiatal hernia also noted in the antrum was a bleeding polypoid lesion this was excised using hot snare technique and this was retrieved for further evaluation and most likely this represents an inflammatory polyp also noted patchy erythema with couple nodules in the antrum probably all inflammatory this too was biopsied the rest of the gastric mucosa was unremarkable The duodenum this was also unremarkable with normal limits ESTIMATED BLOOD LOSS: 5-10 cc of blood from the bleeding polypoid lesion otherwise no additional blood loss SPECIMENS REMOVED: Antral biopsies and antral polyp COMPLICATIONS: None IMPRESSION: Mild Schatzki ring Small hiatal hernia Bleeding polypoid lesion in the gastric antrum Antral gastritis PLAN: Await biopsies Avoid NSAIDs and aspirin Continue PPI Monitor labs and transfuse if needed John Armendariz MD Dec 01, 2017 15:55
[2017-12-01] MEDS ORDERED: ATORVASTATIN 40 MG TAB PO SCH (21:00)
[2017-12-01] MEDS: LOSARTAN 50 MG TAB PO SCH (21:23)
[2017-12-02] VITALS (10 sets, daily range): BP systolic 98–127; BP diastolic 54–60; PULSE 60–69; RESP 16–20; TEMP 97.5–98.8; O2SAT 97–98
[2017-12-02] MEDS: DEXT 5%-NACL 0.9% 1000 ML INJ 1,000 ML IV SCH ×2 (05:34→15:00)
[2017-12-02] MEDS: PANTOPRAZOLE SODIUM 40 MG VIAL IV PUSH SCH (05:34)
[2017-12-02] MEDS: INSULIN ASPART SUPPLEMENTAL SCALE SQ SCH ×4 (08:00→21:00)
--- NOTE | 2017-12-02 08:40 | HHI.PR ---
Subjective Remarks In nad. No n/v/d/c. Denies chest pain or sob. Patient is in bed, says she feels much better and feels comfortable to go home. No fever or chills. No abd pain Objective Vitals Vital Signs Date Time Temp Pulse Resp B/P (MAP) Pulse Ox O2 Delivery O2 Flow Rate FiO2 12/02/17 07:39 64 12/02/17 07:29 98.0 68 16 113/58 (76) 97 12/02/17 04:38 98.1 67 18 98/54 (69) 97 12/02/17 03:41 66 12/02/17 00:00 98.8 69 20 116/54 (74) 98 12/01/17 21:31 97.7 62 19 93/48 (63) 96 12/01/17 17:30 66 12/01/17 16:53 98.0 64 18 110/58 (75) 100 12/01/17 15:55 98.1 67 20 112/65 (81) 99 12/01/17 12:53 73 12/01/17 10:58 98.4 69 18 119/56 (77) 96 12/01/17 09:36 75 20 130/66 (87) 97 12/01/17 09:36 75 20 130/66 (87) 97 Room Air I/O 12/01/17 12/01/17 12/01/17 12/02/17 12/02/17 12/02/17 07:00 15:00 23:00 07:00 15:00 23:00 Intake Total 800 ml Output Total 600 ml Balance -600 ml 800 ml Other 800 ml Output Urine Total 600 ml # Voids 1 2 # Bowel Movements 0 Result Diagram: 12/01/17 0547 12/01/17 0547 Imaging Last Impressions Head CT 11/30/17 0000 Signed Impressions: Service Date/Time: Thursday, November 30, 2017 17:19 - CONCLUSION: No acute intracranial process. Mild atrophy. Vascular calcifications as noted. Uriel Cote MD Chest X-Ray 11/30/17 0000 Signed Impressions: Service Date/Time: Thursday, November 30, 2017 16:46 - CONCLUSION: Normal examination for a patient of this age. Uriel Cote MD Objective Remarks GENERAL: This is a well-nourished, well-developed elderly male patient , in no apparent distress. Awake and alert. CARDIOVASCULAR: Regular rate and rhythm without murmurs, gallops, or rubs. RESPIRATORY: Clear to auscultation. Breath sounds equal bilaterally. No wheezes , rales, or rhonchi. GASTROINTESTINAL: Abdomen soft, non-tender, nondistended. No guarding. MUSCULOSKELETAL: Extremities without clubbing, cyanosis, or edema. No calf tenderness. NEUROLOGICAL: Awake and alert. Motor and sensory grossly within normal limits. No focal neurologic findings appreciated. Normal speech. A/P Assessment and Plan UGI bleed - History of prior upper GI bleed causing symptomatic anemia requiring transfusion status post EGD and polypectomy in February of last year - GI following, appreciate assistance. S/P EGD 12/01/17 bleeding polyps, gastritis, small hiatal hernia, mild Schatzki ring - IV PPI - Advance diet per GI, tolerates well. No more bleeding. Had a black stool today - Continue to hold Plavix and aspirin for now - Monitor H/H repeat level in the afternoon of stable can DC patient Anemia - Suspect secondary to above - Iron studies pending - Patient is asymptomatic at present - Hemoglobin dropped from 10.7-8.7 since admission. Repeat H&H trending down , transfuse 1 U of blood. Continue to monitor H&H in the AM, if stable poss DC patien - Plan to transfuse if hemoglobin drops below 8 or if patient is symptomatic. QUENTIN on suspected CKD - Creatinine 1.66/GFR 40 at admission, no comparison labs available. UA unremarkable. - Improving with IV hydration - Avoid nephrotoxic agents - Continue to monitor kidney function Hypertension - Patient resumed on home medications - Blood pressure controlled - Continue to monitor BP and adjust treatment accordingly Hyperlipidemia Transaminitis - Hold statin and fenofibrate for now - Patient will need a follow-up with PCP in regards to resuming statin treatment Diabetic - Accu-Cheks, insulin sliding scale - Patient takes Januvia at home which is held secondary to nothing by mouth status History of CVA - Patient on chronic Plavix and aspirin therapy, held for now secondary to active GI bleed. DVT prophylaxis - bilateral CUCO/SCDs - Chemoprophylaxis contraindicated secondary to active GI bleed. Discharge Planning Pending stabilization of hemoglobin and GI clearance. Repeat HGB in the afternoon treanding down , transfuse 1 U pRBCs. Will recheck tomorrow level and if stable poss DC Discharge Planning Discharge home with home health in stable condition to follow-up with PCP in [facility] as outpatient Diet healthy heart diet Activity ad cassi. as tolerated Medications per medication reconciliations Mansi Guardado MD Dec 02, 2017 08:40
--- NOTE | 2017-12-02 08:59 | HHI.DCPOC ---
Discharge Care Plan Diagnosis: (1) Bleeding acute gastric ulcer (2) Schatzki's ring (3) Hiatal hernia (4) Elevated liver enzymes (5) Melena Goals to Promote Your Health * To prevent worsening of your condition and complications * To maintain your health at the optimal level Directions to Meet Your Goals AVOID Nonsteroidal anti-inflammatory medications Continue on proton pump inhibitor such as Omeprazole Take your medications as prescribed Follow your dietary instruction Follow activity as directed Keep your appointments as scheduled Take your immunizations and boosters as scheduled If your symptoms worsen call your PCP, if no PCP go to Urgent Care Center or Emergency Room Smoking is Dangerous to Your Health. Avoid second hand smoke Call the 24-hour hour crisis hotline for domestic abuse at Shruthi Sahu Dec 02, 2017 08:59
[2017-12-02] MEDS: SODIUM CHLORIDE 0.9% FLUSH 10 ML FLUSH IV FLUSH SCH ×2 (09:00→21:00)
--- NOTE | 2017-12-02 09:02 | HHI.FF ---
Face to Face Verification Diagnosis: (1) Impaired mobility and activities of daily living (2) Balance problem Physical Therapy Order: Evaluate and Treat, Improve ambulation, Strength and gait training I have seen patient Chinmay Santiago on 12/02/17. My clinical findings support the need for the requested home health care services because: Deconditioned w/ increased weakness High risk of falls I certify that my clinical findings support that this patient is homebound because: Post-op weakness Unsteady gait/balance Unsafe to leave home unassisted Unable to use public transportation Shruthi Sahu Dec 02, 2017 09:02
[2017-12-02] MEDS: ATENOLOL 25 MG TAB PO SCH (09:09)
[2017-12-02] MEDS: GABAPENTIN 300 MG CAP PO SCH ×3 (09:09→20:42)
[2017-12-02] MEDS: OXYBUTYNIN CHLORIDE 5 MG TAB PO SCH ×2 (09:09→20:42)
[2017-12-02] MEDS: SERTRALINE HCL 100 MG TAB PO SCH (09:09)
[2017-12-02] MEDS: amLODIPine BESYLATE 5 MG TAB PO SCH (09:09)
--- NOTE | 2017-12-02 10:07 | HHI.GIFU ---
Objective Vitals I&O Vital Signs Date Time Temp Pulse Resp B/P (MAP) Pulse Ox O2 Delivery O2 Flow Rate FiO2 12/02/17 07:39 64 12/02/17 07:29 98.0 68 16 113/58 (76) 97 12/02/17 04:38 98.1 67 18 98/54 (69) 97 12/02/17 03:41 66 12/02/17 00:00 98.8 69 20 116/54 (74) 98 12/01/17 21:31 97.7 62 19 93/48 (63) 96 12/01/17 17:30 66 12/01/17 16:53 98.0 64 18 110/58 (75) 100 12/01/17 15:55 98.1 67 20 112/65 (81) 99 12/01/17 12:53 73 12/01/17 10:58 98.4 69 18 119/56 (77) 96 I/O 12/01/17 12/01/17 12/01/17 12/02/17 12/02/17 12/02/17 07:00 15:00 23:00 07:00 15:00 23:00 Intake Total 800 ml Output Total 600 ml Balance -600 ml 800 ml Other 800 ml Output Urine Total 600 ml # Voids 1 2 # Bowel Movements 0 Laboratory Laboratory Tests Test 12/01/17 12:45 Iron Level 132 Ferritin 33 CA 19-9 Antigen 14.0 Physical Exam HEENT: Pupils round and reactive to light; normocephalic; atraumatic; no jaundice. Throat is clear. NECK: Neck is supple, no JVD, no lymphadenopathy. CHEST: Chest is clear to auscultation and percussion. CARDIAC: Regular rate and rhythm with no murmur gallop or rubs. ABDOMEN: Soft, nondistended, nontender; no hepatosplenomegaly; bowel sounds are present in all four quadrants. EXTREMITIES: No clubbing, cyanosis, or edema. SKIN: Normal; no rash; no jaundice. TWENTY ONE DEALER: No focal deficits; alert and oriented times three. Assessment and Plan Assessment: (1) Elevated liver enzymes ICD Codes: R74.8 - Abnormal levels of other serum enzymes (2) Melena ICD Codes: K92.1 - Melena Status: Acute (3) Symptomatic anemia ICD Codes: D64.9 - Anemia, unspecified Status: Acute Plan Symptomatic anemia and melena: Possibly due to gastritis, ulcers, ETOH abuse, polyps. Discussed with Dr. Armendariz, case, EGD scheduled for today. GI lab notified. Patient's currently NPO. General information given to patient and plan of care. Patient's on Plavix, but has been held for two days. EGD done 12/01/17, Mild Schatzki ring noted with small hiatal hernia, bleeding polypoid lesion in the gastric antrum with polypectomy done Antral gastritis Plan Await biopsies Avoid NSAIDs and aspirin Continue PPI Monitor labs and transfuse if needed PPI Old records ordered from [place] ordered Supportive care, further plan of care based on patient's symptoms. This patient was seen by myself and Dr. Armendariz, note was written on his behalf. Alba Montoya Dec 02, 2017 10:07
[2017-12-02 10:51] LABS: HEMATOCRIT 24.6 % (39.0-51.0); MEAN CELL VOLUME 93.9 FL (80.0-100.0); MEAN CORPUSCULAR HEMOGLOBIN 30.5 PG (27.0-34.0); MEAN CORPUSCULAR HGB CONC 32.5 % (32.0-36.0); PLATELET COUNT 119 TH/MM3 (150-450); RED BLOOD COUNT 2.62 MIL/MM3 (4.50-5.90)
--- NOTE | 2017-12-02 11:09 | HHI.GIFU ---
Subjective Remarks Resting in the bed alert answers questions appropriately Able to get up and walk to bathroom and sit up in chair States he is feeling better denies any epigastric or abdominal pain (Alba Montoya) Objective Vitals I&O Vital Signs Date Time Temp Pulse Resp B/P (MAP) Pulse Ox O2 Delivery O2 Flow Rate FiO2 12/02/17 07:39 64 12/02/17 07:29 98.0 68 16 113/58 (76) 97 12/02/17 04:38 98.1 67 18 98/54 (69) 97 12/02/17 03:41 66 12/02/17 00:00 98.8 69 20 116/54 (74) 98 12/01/17 21:31 97.7 62 19 93/48 (63) 96 12/01/17 17:30 66 12/01/17 16:53 98.0 64 18 110/58 (75) 100 12/01/17 15:55 98.1 67 20 112/65 (81) 99 12/01/17 12:53 73 I/O 12/01/17 12/01/17 12/01/17 12/02/17 12/02/17 12/02/17 07:00 15:00 23:00 07:00 15:00 23:00 Intake Total 800 ml Output Total 600 ml Balance -600 ml 800 ml Other 800 ml Output Urine Total 600 ml # Voids 1 2 # Bowel Movements 0 Laboratory Laboratory Tests Test 12/01/17 12:45 12/02/17 10:15 Iron Level 132 Ferritin 33 CA 19-9 Antigen 14.0 White Blood Count 3.0 Red Blood Count 2.62 Hemoglobin 8.0 Hematocrit 24.6 Mean Corpuscular Volume 93.9 Mean Corpuscular Hemoglobin 30.5 Mean Corpuscular Hemoglobin Concent 32.5 Red Cell Distribution Width 14.0 Platelet Count 119 Mean Platelet Volume 9.0 Imaging Last Impressions Head CT 11/30/17 0000 Signed Impressions: Service Date/Time: Thursday, November 30, 2017 17:19 - CONCLUSION: No acute intracranial process. Mild atrophy. Vascular calcifications as noted. Uriel Cote MD Chest X-Ray 11/30/17 0000 Signed Impressions: Service Date/Time: Thursday, November 30, 2017 16:46 - CONCLUSION: Normal examination for a patient of this age. Uriel Cote MD Physical Exam HEENT: Pupils round and reactive to light; normocephalic; atraumatic; no jaundice. NECK: Neck is supple, no JVD, no lymphadenopathy. CHEST: Chest is clear to auscultation and percussion. CARDIAC: Regular rate and rhythm with no murmur gallop or rubs. ABDOMEN: Soft, nondistended, nontender; no hepatosplenomegaly; bowel sounds active EXTREMITIES: No clubbing, cyanosis, or edema. SKIN: Normal; no rash; no jaundice. 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 EGD done 12/01/17, Mild Schatzki ring noted with small hiatal hernia, bleeding polypoid lesion in the gastric antrum with polypectomy done Antral gastritis Plan Await biopsies Avoid NSAIDs and aspirin Continue PPI Monitor labs and transfuse if needed PPI Supportive care, further plan of care based on patient's symptoms. This patient was seen by myself and Dr. Armendariz, note was written on his behalf. (Alba Montoya) Physician Comments Patient seen and examined Agree with above Continue with current supportive care Monitor labs If any further drop in hemoglobin will consider a bleeding scan (John Armendariz MD) Alba Montoya Dec 02, 2017 11:09 John Armendariz MD Dec 03, 2017 00:49
[2017-12-02 11:20] LABS: ALBUMIN 3.4 GM/DL (3.4-5.0); ALKALINE PHOSPHATASE 85 U/L (45-117); ALT (GPT) 39 U/L (12-78); AST (GOT) 50 U/L (15-37); BICARBONATE 21.3 MEQ/L (21.0-32.0); BLOOD UREA NITROGEN 27 MG/DL (7-18); CHLORIDE 112 MEQ/L (98-107); CREATININE 1.31 MG/DL (0.60-1.30); GLOMERULAR FILTRATION RATE 53 ML/MIN (>89); GLUCOSE,RANDOM 132 MG/DL (74-106); SODIUM (NA) 142 MEQ/L (136-145); TOTAL BILIRUBIN ADULT 0.3 MG/DL (0.2-1.0); TOTAL PROTEIN 6.1 GM/DL (6.4-8.2)
[2017-12-02 17:32] LABS: HEMATOCRIT 22.7 % (39.0-51.0); HEMOGLOBIN 7.6 GM/DL (13.0-17.0)
[2017-12-02] MEDS ORDERED: FUROSEMIDE 20 MG/2 ML VIAL IV PUSH ONE (18:15)
[2017-12-02] MEDS ORDERED: SODIUM CHLOR 0.9% 250 ML INJ 250 ML IV ONE (18:15)
[2017-12-02] MEDS ORDERED: diphenhydrAMINE HCL 25 MG CAP PO PRN (18:15)
[2017-12-02] MEDS ORDERED: ACETAMINOPHEN 325 MG TAB PO PRN (18:15)
[2017-12-02] MEDS: LOSARTAN 50 MG TAB PO SCH (20:42)
[2017-12-02] MEDS: PANTOPRAZOLE SOD 40 MG DELAYED RELEASE TAB PO SCH (20:42)
[2017-12-02] MEDS: NIACIN 500 MG EXTENDED RELEASE TAB PO SCH (20:42)
[2017-12-03] VITALS (7 sets, daily range): BP systolic 107–144; BP diastolic 53–67; PULSE 55–65; RESP 14–19; TEMP 96.1–98.5; O2SAT 97
[2017-12-03] MEDS: DEXT 5%-NACL 0.9% 1000 ML INJ 1,000 ML IV SCH (05:30)
[2017-12-03 07:57] LABS: BICARBONATE 25.5 MEQ/L (21.0-32.0); CALCIUM 8.6 MG/DL (8.5-10.1); CREATININE 1.28 MG/DL (0.60-1.30)
[2017-12-03] MEDS: INSULIN ASPART SUPPLEMENTAL SCALE SQ SCH (08:00)
[2017-12-03 08:23] LABS: AUTOMATED NEUTROPHIL # 2.4 TH/MM3 (1.8-7.7); BASOPHIL % 1.1 % (0.0-2.0); EOSINOPHIL # 0.2 TH/MM3 (0-0.4); EOSINOPHIL % 5.2 % (0.0-4.0); HEMATOCRIT 29.7 % (39.0-51.0); LYMPH % 30.6 % (9.0-44.0); LYMPHOCYTE # 1.3 TH/MM3 (1.0-4.8); MEAN CELL VOLUME 90.3 FL (80.0-100.0); MEAN CORPUSCULAR HEMOGLOBIN 30.6 PG (27.0-34.0); MEAN CORPUSCULAR HGB CONC 33.8 % (32.0-36.0); MEAN PLATELET VOLUME 9.2 FL (7.0-11.0); MONO % 7.6 % (0.0-8.0); MONOCYTE # 0.3 TH/MM3 (0-0.9); NEUT % 55.5 % (16.0-70.0); PLATELET COUNT 156 TH/MM3 (150-450); RED BLOOD COUNT 3.28 MIL/MM3 (4.50-5.90); RED CELL DISTRIBUTION WIDTH 15.4 % (11.6-17.2); WHITE BLOOD COUNT 4.4 TH/MM3 (4.0-11.0)
[2017-12-03] MEDS: SODIUM CHLORIDE 0.9% FLUSH 10 ML FLUSH IV FLUSH SCH (09:00)
[2017-12-03] MEDS: ATENOLOL 25 MG TAB PO SCH (09:00)
[2017-12-03] MEDS: OXYBUTYNIN CHLORIDE 5 MG TAB PO SCH (09:02)
[2017-12-03] MEDS: SERTRALINE HCL 100 MG TAB PO SCH (09:02)
[2017-12-03] MEDS: amLODIPine BESYLATE 5 MG TAB PO SCH (09:03)
[2017-12-03] MEDS: PANTOPRAZOLE SOD 40 MG DELAYED RELEASE TAB PO SCH (09:03)
[2017-12-03] MEDS: GABAPENTIN 300 MG CAP PO SCH (09:03)
--- NOTE | 2017-12-03 09:54 | HHI.DS ---
Discharge Summary Admission Date Nov 30, 2017 at 19:48 Discharge Date: Dec 03, 2017 Admitting Diagnosis Symptomatic anemia, GI Bleed on plavix (1) Elevated liver enzymes ICD Code: R74.8 - Abnormal levels of other serum enzymes (2) Schatzki's ring ICD Code: K22.2 - Esophageal obstruction (3) Hiatal hernia ICD Code: K44.9 - Diaphragmatic hernia without obstruction or gangrene (4) Bleeding acute gastric ulcer ICD Code: K25.0 - Acute gastric ulcer with hemorrhage (5) Balance problem ICD Code: R26.89 - Other abnormalities of gait and mobility (6) Impaired mobility and activities of daily living ICD Code: Z74.09 - Other reduced mobility Procedures egd Brief History - From Admission History from patient, ER physician communication, and review of medical records. Patient reported that about a couple of nights ago, he has had black color stool. He reports he remember having similar symptoms about 6 months ago at which time he had a polyp removed. He stated at that time his hemoglobin was 5.0. He was severely symptomatic at that point and had to be rushed to go to the hospital. His baseline hemoglobin is 11-12. This time, he did not want to wait that long and therefore he came to the hospital. He reports that he had an endoscopy and the polyp was was removed through the endoscopy. He is not sure exactly what part of his upper GI that the polyp was located. Patient denies any prior history of CAD. He reports his blood cholesterol was only once or twice and happened about a few nights ago. It has spontaneously resolved. He however has not eaten much at home since the then. He denies any chest pain/shortness of breath/dizziness/syncopal episodes. He does however report of generalized weakness He came here from [place] for vacation. CBC/BMP: 12/03/17 0710 12/03/17 0710 Significant Findings Laboratory Tests Test 11/30/17 14:45 11/30/17 18:33 11/30/17 20:40 12/01/17 05:47 Red Blood Count 3.39 MIL/MM3 (4.50-5.90) 2.76 MIL/MM3 (4.50-5.90) Hemoglobin 10.7 GM/DL (13.0-17.0) 9.5 GM/DL (13.0-17.0) 8.7 GM/DL (13.0-17.0) Hematocrit 31.3 % (39.0-51.0) 28.9 % (39.0-51.0) 25.4 % (39.0-51.0) Eosinophils (%) (Auto) 5.3 % (0.0-4.0) 5.4 % (0.0-4.0) Activated Partial Thromboplast Time 21.7 SEC (24.3-30.1) Blood Urea Nitrogen 30 MG/DL (7-18) 27 MG/DL (7-18) Creatinine 1.66 MG/DL (0.60-1.30) 1.36 MG/DL (0.60-1.30) Random Glucose 111 MG/DL (74-106) 116 MG/DL (74-106) Aspartate Amino Transf (AST/SGOT) 77 U/L (15-37) Estimat Glomerular Filtration Rate 40 ML/MIN (>89) 50 ML/MIN (>89) Urine Bacteria RARE /hpf (NONE) White Blood Count 3.1 TH/MM3 (4.0-11.0) Platelet Count 124 TH/MM3 (150-450) Neutrophils # (Auto) 1.7 TH/MM3 (1.8-7.7) Chloride Level 109 MEQ/L (98-107) Test 12/01/17 12:45 12/02/17 10:15 12/02/17 16:54 12/03/17 07:10 White Blood Count 3.0 TH/MM3 (4.0-11.0) Red Blood Count 2.62 MIL/MM3 (4.50-5.90) 3.28 MIL/MM3 (4.50-5.90) Hemoglobin 8.0 GM/DL (13.0-17.0) 7.6 GM/DL (13.0-17.0) 10.0 GM/DL (13.0-17.0) Hematocrit 24.6 % (39.0-51.0) 22.7 % (39.0-51.0) 29.7 % (39.0-51.0) Platelet Count 119 TH/MM3 (150-450) Blood Urea Nitrogen 27 MG/DL (7-18) Creatinine 1.31 MG/DL (0.60-1.30) Random Glucose 132 MG/DL (74-106) Total Protein 6.1 GM/DL (6.4-8.2) Calcium Level 8.0 MG/DL (8.5-10.1) Aspartate Amino Transf (AST/SGOT) 50 U/L (15-37) Chloride Level 112 MEQ/L (98-107) 110 MEQ/L (98-107) Estimat Glomerular Filtration Rate 53 ML/MIN (>89) 54 ML/MIN (>89) Eosinophils (%) (Auto) 5.2 % (0.0-4.0) Imaging Last Impressions Head CT 11/30/17 0000 Signed Impressions: Service Date/Time: Thursday, November 30, 2017 17:19 - CONCLUSION: No acute intracranial process. Mild atrophy. Vascular calcifications as noted. Uriel Cote MD Chest X-Ray 11/30/17 0000 Signed Impressions: Service Date/Time: Thursday, November 30, 2017 16:46 - CONCLUSION: Normal examination for a patient of this age. Uriel Cote MD PE at Discharge GENERAL: This is a well-nourished, well-developed elderly male patient , in no apparent distress. Awake and alert. CARDIOVASCULAR: Regular rate and rhythm without murmurs, gallops, or rubs. RESPIRATORY: Clear to auscultation. Breath sounds equal bilaterally. No wheezes , rales, or rhonchi. GASTROINTESTINAL: Abdomen soft, non-tender, nondistended. No guarding. MUSCULOSKELETAL: Extremities without clubbing, cyanosis, or edema. No calf tenderness. NEUROLOGICAL: Awake and alert. Motor and sensory grossly within normal limits. No focal neurologic findings appreciated. Normal speech. Pt update on day of discharge Feels better. able to eat. No more bleeding. No n/v/d/c. nO sob or cp. Feels better. Hospital Course UGI bleed - History of prior upper GI bleed causing symptomatic anemia requiring transfusion status post EGD and polypectomy in February of last year - GI following, appreciate assistance. S/P EGD 12/01/17 bleeding polyps, gastritis, small hiatal hernia, mild Schatzki ring - IV PPI - Advance diet per GI, tolerates well. No more bleeding. Had a black stool today - Continue to hold Plavix and aspirin for now - Monitor H/H repeat level in the afternoon of stable can DC patient Anemia - Suspect secondary to above - Iron studies pending - Patient is asymptomatic at present - Hemoglobin dropped from 10.7-8.7 since admission. Repeat H&H trending down , transfuse 1 U of blood. Continue to monitor H&H in the AM, if stable poss DC patien - Plan to transfuse if hemoglobin drops below 8 or if patient is symptomatic. QUENTIN on suspected CKD - Creatinine 1.66/GFR 40 at admission, no comparison labs available. UA unremarkable. - Improving with IV hydration - Avoid nephrotoxic agents - Continue to monitor kidney function Hypertension - Patient resumed on home medications - Blood pressure controlled - Continue to monitor BP and adjust treatment accordingly Hyperlipidemia Transaminitis - Hold statin and fenofibrate for now - Patient will need a follow-up with PCP in regards to resuming statin treatment Diabetic - Accu-Cheks, insulin sliding scale - Patient takes Januvia at home which is held secondary to nothing by mouth status History of CVA - Patient on chronic Plavix and aspirin therapy, held for now secondary to active GI bleed. DVT prophylaxis - bilateral CUCO/SCDs - Chemoprophylaxis contraindicated secondary to active GI bleed. Discharge Planning Pending stabilization of hemoglobin and GI clearance. Repeat HGB treanding down , transfused additional 1 U pRBCs. HGB Recheck level is > 10, stable Discharge Planning Discharge home with home health in stable condition to follow-up with PCP in consultants as outpatient Diet healthy heart diet Activity ad cassi. as tolerated Medications per medication reconciliations Pt Condition on Discharge: Stable Discharge Disposition: Disch w/ Home Health Serv Discharge Time: > 30 minutes Discharge Instructions DIET: Follow Instructions for: Heart Healthy Diet, Diabetic Diet Activities you can perform: Regular-No Restrictions, See Additionl Instruction Other Activity Instructions: per PT recommendations Follow up Referrals: Gastroenterology - 1 Week with John Armendariz MD PCP Follow-up - 1 Week Continued Medications: Amlodipine (Amlodipine) 5 Mg Tab 5 MG PO DAILY for Blood Pressure Management, #30 TAB 0 Refills Ascorbic Acid (C 500) 500 Mg Tab 500 MG PO HS Aspirin DR (Aspirin Adult Low Strength) 81 Mg Tabdr 81 MG PO DAILY, TAB Atenolol (Tenormin) 25 Mg Tab 25 MG PO DAILY for Blood Pressure Management, #30 TAB 0 Refills Atorvastatin (Atorvastatin) 40 Mg Tab 40 MG PO HS for Cholesterol Management, #30 TAB 0 Refills Clopidogrel (Plavix) 75 Mg Tab 75 MG PO DAILY for Blood Clot Prevention, #30 TAB 0 Refills Febuxostat (Uloric) 80 Mg Tab 40 MG PO EVERY OTHER DAY Fenofibrate (Fenofibrate) 54 Mg Tab 54 MG PO DAILY, #30 TAB 0 Refills Gabapentin (Gabapentin) 600 Mg Tab 600 MG PO TID, #90 TAB 0 Refills Losartan (Losartan) 100 Mg Tab 100 MG PO HS for Blood Pressure Management, #30 TAB 0 Refills Niacinamide (Niacin) 500 Mg Tablet 500 MG PO HS for Nutritional Supplement Omeprazole (Omeprazole) 40 Mg Cap 40 MG PO DAILY, #30 CAP 0 Refills Oxybutynin ER 24 HR (Oxybutynin ER 24 HR) 10 Mg Tab 10 MG PO HS for Overactive Bladder, TAB 0 Refills Sertraline (Zoloft) 100 Mg Tab 100 MG PO DAILY, #30 TAB 0 Refills Sitagliptin (Januvia) 50 Mg Tab 50 MG PO DAILY for Blood Sugar Management, #30 TAB 0 Refills Mansi Guardado MD Dec 03, 2017 09:54
== END 2017-12-03 12:27 | disposition home or self-care (01) ==
LOC: NEPC 14:24 → NEDA 19:48 → NEDH 12-01 00:30 → NEPHCDU 12-01 10:57
PROVIDERS: ADMIT Hospitalist; ATTEND Hospitalist
DX: K25.0 Acute gastric ulcer with hemorrhage (principal); D64.9 Anemia, unspecified; K31.7 Polyp of stomach and duodenum; K29.50 Unspecified chronic gastritis without bleeding; K22.2 Esophageal obstruction; R74.8 Abnormal levels of other serum enzymes; K44.9 Diaphragmatic hernia without obstruction or gangrene; R53.1 Weakness; R26.9 Unspecified abnormalities of gait and mobility; Z86.73 Personal history of transient ischemic attack (TIA), and cerebral infarction without residual deficits; Z79.02 Long term (current) use of antithrombotics/antiplatelets
CPT/HCPCS: 00731; 36430; 43251; 70450; 71045; 80048; 80053; 81001; 82728; 82948; 83540; 83690; 85014; 85018; 85025; 85027; 85610; 85730; 86301; 86850; 86900; 86901; 86920; 88305; 88312; 93005; 96361; 96374; 96375; 96376; 97162; 99285; C9113; G0378; G8987; G8988; J1200; J1940; J7040; J7042; J7050; P9016